=== PATIENT | male | born 1945 | race Caucasian/White ===

== ENCOUNTER → 2019-05-30 | Outpatient (CLI) | payer OTHER ==
[~2019-05-30] MED LIST: CIPROFLOXACIN500 M1 PO; FLAGYL500 M1 PO; NOHOMEMEDICATIONS
== END ==
LOC: SJCVCIMAG 08:46
DX: I08.8 Other rheumatic multiple valve diseases (principal); I71.2 Thoracic aortic aneurysm, without rupture

== ENCOUNTER → 2020-08-28 | Outpatient (CLI) | payer OTHER | LOC: SJCVC 13:11 | PROVIDERS: ATTEND Internal Medicine | DX: I44.0 Atrioventricular block, first degree (principal); I71.2 Thoracic aortic aneurysm, without rupture; E78.5 Hyperlipidemia, unspecified; I10 Essential (primary) hypertension; F17.210 Nicotine dependence, cigarettes, uncomplicated; Z79.82 Long term (current) use of aspirin; Z79.899 Other long term (current) drug therapy; Z72.89 Other problems related to lifestyle ==

== ENCOUNTER → 2020-09-04 | Outpatient (CLI) | payer OTHER | LOC: SJCVCIMAG 11:22 | PROVIDERS: ATTEND Internal Medicine | DX: I08.3 Combined rheumatic disorders of mitral, aortic and tricuspid valves (principal); I10 Essential (primary) hypertension ==